=== PATIENT | male | born 1990 | race Caucasian/White ===

== ENCOUNTER → 2018-03-02 | Outpatient (CLI) | payer SELFPAY ==
[2018-03-02 14:30] LABS: HEMATOCRIT 43.1 % (37.9-51.0); MEAN CORPUSCULAR HEMOGLOBIN 25.9 pg (27.0-33.4); MEAN CORPUSCULAR HGB CONC 32.6 g/dL (32.0-36.0); MEAN CORPUSCULAR VOLUME 80 fl (80-97); PLATELET COUNT 511 10^3/uL (150-450); RED BLOOD COUNT 5.42 10^6/uL (4.35-5.55); RED CELL DISTRIBUTION WIDTH 15.1 % (11.5-14.0); WHITE BLOOD COUNT 13.8 10^3/uL (4.0-10.5)
== END ==
LOC: LAB 14:05
PROVIDERS: ATTEND Physician Assistant Surgical
DX: K62.5 Hemorrhage of anus and rectum (principal); R19.7 Diarrhea, unspecified
CPT/HCPCS: 36415; 85027; 86140

== ENCOUNTER 2019-04-19 14:38 | Emergency (ER) | payer BC ==
[2019-04-19 14:48] VITALS: BP 116/83
[2019-04-19] MEDS ORDERED: NORMAL SALINE 1000 ML 1,000 ML IV ONE (15:39)
[2019-04-19] MEDS ORDERED: ONDANSETRON HCL INJ/PF 4 MG/2 ML SDV IV ONE (15:39)
[2019-04-19] MEDS ORDERED: FAMOTIDINE INJ/PF 20 MG/2 ML SDV IV ONE (15:39)
--- NOTE | 2019-04-19 15:42 | ER Document Report ---
ED Medical Screen (RME) - General Chief Complaint: Abdominal Pain Stated Complaint: ABDOMINAL PAIN,VOMITING,DIZZINESS Time Seen by Provider: 04/19/19 15:35 Primary Care Provider: GEORGINA MATSON PA-C [Primary Care Provider] - Follow up as needed Mode of Arrival: Ambulatory Information source: Patient Notes: Patient is a 28-year-old male with history of ulcerative colitis presenting to the emergency department chief complaint of epigastric pain, chest pain, abdominal pain and blood in stools. Patient reports he has not slept in 2 days due to the severe pain in his esophagus. He states that he went to an urgent care just prior to arrival and was found to be pale, diaphoretic and tachycardic so they sent him here. Patient reports he has not been able to keep any fluids down although he has been trying to drink water. He denies any fevers but patient has obvious chills in triage. Exam: Mild generalized abdominal pain without guarding or rebound. Skin pale. I have greeted and performed a rapid initial assessment of this patient. A comprehensive ED assessment and evaluation of the patient, analysis of test results and completion of the medical decision making process will be conducted by additional ED providers. I have specifically instructed the patient or family members with the patient to immediately return to any nursing staff should anything change in the patient's condition or with their chief complaint. This medical record was dictated with voice recognizing software. There may be grammatical, syntax errors that are unintended. TRAVEL OUTSIDE OF THE [place] IN LAST 30 DAYS: No - Related Data Allergies/Adverse Reactions: No Known Allergies Allergy (Verified 04/19/19 14:43) Past Medical History - Immunizations Hx Diphtheria, Pertussis, Tetanus Vaccination: No Physical Exam - Vital signs Vitals: Temp Pulse BP Pulse Ox 98.1 F 130 H 116/83 100 04/19/19 14:46 04/19/19 14:46 04/19/19 14:46 04/19/19 14:46 Course - Vital Signs Vital signs: Temp Pulse Resp BP Pulse Ox 98.1 F 130 H 116/83 100 04/19/19 14:46 04/19/19 14:46 04/19/19 14:46 04/19/19 14:46 Doctor's Discharge - Discharge Referrals: GEROGINA MATSON PA-C [Primary Care Provider] - Follow up as needed
[2019-04-19 16:27] LABS: ABSOLUTE BASOPHILS # (AUTO) 0.1 10^3/uL (0.0-0.2); ABSOLUTE LYMPHOCYTES (AUTO) 2.4 10^3/uL (0.5-4.7); ABSOLUTE MONOCYTES (AUTO) 0.6 10^3/uL (0.1-1.4); ABSOLUTE NEUT (AUTO) 6.1 10^3/uL (1.7-8.2); BASOPHILS % (AUTO) 1.1 % (0-2); EOSINOPHILS % (AUTO) 0.4 % (0-6); HEMATOCRIT 29.7 % (37.9-51.0); HEMOGLOBIN 9.2 g/dL (13.5-17.0); LYMPHOCYTES % (AUTO) 26.2 % (13-45); MEAN CORPUSCULAR HEMOGLOBIN 17.5 pg (27.0-33.4); MONOCYTES % (AUTO) 6.2 % (3-13); PLATELET COUNT 680 10^3/uL (150-450); RED BLOOD COUNT 5.25 10^6/uL (4.35-5.55); RED CELL DISTRIBUTION WIDTH 19.7 % (11.5-14.0); SEGMENTED NEUTROPHILS % (AUTO) 66.1 % (42-78); TOTAL CELLS COUNTED % (AUTO) 100 %; WHITE BLOOD COUNT 9.2 10^3/uL (4.0-10.5)
[2019-04-19 16:49] LABS: ALBUMIN 4.6 g/dL (3.5-5.0); ALKALINE PHOSPHATASE 236 U/L (38-126); ANION GAP 19 (5-19); ASPARTATE AMINO TRANSFERASE 38 U/L (17-59); BILIRUBIN,DIRECT 0.1 mg/dL (0.0-0.4); BILIRUBIN,TOTAL 0.8 mg/dL (0.2-1.3); BLOOD UREA NITROGEN 8 mg/dL (7-20); CALCIUM 10.6 mg/dL (8.4-10.2); CARBON DIOXIDE 29 mmol/L (22-30); CHLORIDE 80 mmol/L (98-107); GLUCOSE 114 mg/dL (75-110); POTASSIUM 3.2 mmol/L (3.6-5.0); TOTAL PROTEIN 8.9 g/dL (6.3-8.2)
[2019-04-19 17:11] LABS: MEAN CORPUSCULAR VOLUME 57 fl (80-97)
[2019-04-19 17:13] LABS: ANISOCYTOSIS 2+; HYPOCHROMASIA 2+; PLATELET COMMENT INCREASED; PLATELET LARGE PRESENT; POLYCHROMASIA SLIGHT; TARGET CELLS SLIGHT
[2019-04-19] MEDS ORDERED: DIAZEPAM INJ 10 MG/2 ML DISP.SYRIN IV ONE (17:32)
--- NOTE | 2019-04-19 17:34 | ER Document Report ---
ED General - General Chief Complaint: Abdominal Pain Stated Complaint: ABDOMINAL PAIN,VOMITING,DIZZINESS Time Seen by Provider: 04/19/19 15:35 Primary Care Provider: GEORGINA MATSON PA-C [COMMUNITY BASED STAFF] - Follow up as needed Mode of Arrival: Ambulatory Notes: 28-year-old male with ulcerative colitis, currently not on medication, presents with several complaints. Rectal bleeding today over 20 times, pure blood plus watery diarrhea, with some lower abdominal cramping and upper abdominal burning and reflux. Nauseous. Has not eaten in 2 days has not slept in 3 days. Denies fever chills. Denies excessive alcohol consumption other than drinking 3 days in a row prior to this occurring, which began Thursday. TRAVEL OUTSIDE OF THE [place] IN LAST 30 DAYS: No - Related Data Allergies/Adverse Reactions: No Known Allergies Allergy (Verified 04/19/19 14:43) Past Medical History - General Information source: Patient - Social History Smoking Status: Never Smoker Chew tobacco use (# tins/day): No Frequency of alcohol use: Social Drug Abuse: None Family History: None Patient has suicidal ideation: No Patient has homicidal ideation: No - Immunizations Hx Diphtheria, Pertussis, Tetanus Vaccination: No Review of Systems - Review of Systems Notes: REVIEW OF SYSTEMS GEN: Denies fever, chills, weight loss ENT: Denies sore throat, nasal discharge, ear pain EYES: Denies blurry vision, eye pain, discharge CV: Denies chest pain, palpitations, edema RESP: Denies cough, shortness of breath, wheezing GI: HPI MSK: Denies joint pain/swelling, edema, SKIN: Denies rash, skin lesions LYMPH: Denies swollen glands/lymph nodes NEURO: Denies headache, focal weakness or numbness, dizziness PSYCH: Denies depression, suicidal or homicidal ideation PHYSICAL EXAMINATION General: No acute distress, well-nourished Head: Atraumatic, normocephalic ENT: Mouth normal, oropharynx moist, no exudates or tonsillar enlargement Eyes: Conjunctiva normal, pupils equal, lids normal Neck: No JVD, supple, no guarding CVS: Normal rate, regular rhythm, no murmurs Resp: No resp distress, equal and normal breath sounds bilaterally GI: Nondistended, soft, quadrant tenderness to palpation, no rebound or guarding no stool in the rectal vault. Ext: No deformities, no edema, normal range of motion in upper and lower ext Back: No CVA or midline TTP Skin: No rash, warm Lymphatic: No lymphadeopathy noted Neuro: Awake, alert. Face symmetric. GCS 15. Physical Exam - Vital signs Vitals: Temp Pulse BP Pulse Ox 98.1 F 130 H 116/83 100 04/19/19 14:46 04/19/19 14:46 04/19/19 14:46 04/19/19 14:46 Course - Re-evaluation Re-evalutation: 04/19/19 18:49 Patient presents with abdominal pain rectal bleeding and general dehydration with a history of ulcerative colitis. He is tachycardic on arrival. Do not suspect alcohol withdrawal based on historylikely dehydrated and possibly anemic. Labs been sent. They show a hemoglobin of 9.6. His last one was a year ago and was normal. His rectal exam does not suggest active ongoing severe hemorrhage. His heart rate is come down with IV fluids ordered at triage. His CT shows colonic wall thickening, he also has signs of dehydration with hyponatremia hypokalemia. He is received fluids which she is more, will receive potassium supplementation in 1time steroid dose. Also give him Ativan, for anxiety and nausea. There is no GI at [facility], and I spoke with Dr. White who said that I should send the patient somewhere with GI. Discussed with Dr. Wagner at [facility] who accepted the patient in transfer - Vital Signs Vital signs: Temp Pulse Resp BP Pulse Ox 98.1 F 130 H 116/83 100 04/19/19 14:46 04/19/19 14:46 04/19/19 14:46 04/19/19 14:46 - Laboratory Result Diagrams: 04/19/19 16:00 04/19/19 16:00 Laboratory results interpreted by me: 04/19/19 04/19/19 16:00 16:00 Hgb 9.2 L Hct 29.7 L MCV 57 L MCH 17.5 L MCHC 31.0 L RDW 19.7 H Plt Count 680 H Sodium 128.2 L Potassium 3.2 L Chloride 80 L Glucose 114 H Calcium 10.6 H Alkaline Phosphatase 236 H Total Protein 8.9 H - Diagnostic Test Radiology reviewed: Image reviewed, Reports reviewed Discharge - Discharge Clinical Impression: Hypokalemia Ulcerative colitis Qualifiers: Ulcerative colitis location: other ulcerative colitis Digestive disease complication type: with rectal bleeding Qualified Code(s): K51.811 - Other ulcerative colitis with rectal bleeding Condition: Fair Disposition: [facility] Referrals: GEORGINA MATSON PA-C [COMMUNITY BASED STAFF] - Follow up as needed
--- NOTE | 2019-04-19 17:52 | RADIOLOGY REPORT (SQ) ---
EXAM DESCRIPTION: ACUTE ABDOMEN SERIES COMPLETED DATE/TIME: 04/19/2019 4:57 pm REASON FOR STUDY: epigastric pain, chest pain, abd pain COMPARISON: None. NUMBER OF VIEWS: Three views. TECHNIQUE: Frontal chest, supine abdomen and upright/decubitus abdomen radiographic images acquired. LIMITATIONS: None. FINDINGS: CHEST: Lungs clear of infiltrates. FREE AIR: None. No abnormal gas collections. BOWEL GAS PATTERN: Nonobstructive pattern. No dilated loops or air fluid levels. CALCIFICATIONS: Cannot exclude a 7 mm ureteral calculus on the left between the transverse processes of L4 and L5. HARDWARE: None in the abdomen. SOFT TISSUES: No gross mass or suggestion of organomegaly. BONES: No acute fracture. No worrisome bone lesions. OTHER: No other significant finding. IMPRESSION: Cannot exclude left ureteral calculus. No other significant finding. TECHNICAL DOCUMENTATION: JOB ID: [id number] [employer]- All Rights Reserved Reading location - IP/workstation name: [email or web address]
[2019-04-19] MEDS: POTASSI CL 20 MEQ/50 ML RIDER 20 MEQ/50 ML RTUPB IV SCH ×2 (18:16→20:18)
--- NOTE | 2019-04-19 18:19 | RADIOLOGY REPORT (SQ) ---
EXAM DESCRIPTION: CT ABD/PELVIS WITH IV ONLY COMPLETED DATE/TIME: 04/19/2019 6:07 pm REASON FOR STUDY: abd pain, Ulc Colitis COMPARISON: None. TECHNIQUE: CT scan of the abdomen and pelvis performed using helical scanning technique with dynamic intravenous contrast injection. No oral contrast. Images reviewed with lung, soft tissue, and bone windows. Reconstructed coronal and sagittal MPR images reviewed. Delayed images were not acquired. Al l images stored on PACS. All CT scanners at this facility use dose modulation, iterative reconstruction, and/or weight based d osing when appropriate to reduce radiation dose to as low as reasonably achievable (ALARA). [facility]: Dose Right [facility]: CareDose [facility]: Dose Right [facility]: Teradose 4D [facility]: Media Lantern CONTRAST TYPE AND DOSE: 91 mL Omnipaque 350- low osmolar. RENAL FUNCTION: BUN 8 creatinine 1.19 RADIATION DOSE: CT Rad equipment meets quality standard of care and radiation dose reduction techniq ues were employed. CTDIvol: NaN mGy. DLP: 0 mGy-cm.. LIMITATIONS: None. FINDINGS: LOWER CHEST: No significant findings. No nodules or infiltrates. LIVER: Normal size. No masses. No dilated ducts. SPLEEN: Normal size. No focal lesions. PANCREAS: No masses. No significant calcifications. No adjacent inflammation or peripancreatic fluid collections. Pancreatic duct not dilated. GALLBLADDER: No identified stones by CT criteria. No inflammatory changes to suggest cholecystitis. ADRENAL GLANDS: No significant masses or asymmetry. RIGHT KIDNEY AND URETER: No solid masses. No significant calcifications. No hydronephrosis or hyd roureter. LEFT KIDNEY AND URETER: No solid masses. No significant calcifications. No hydronephrosis or hydr oureter. AORTA AND VESSELS: No aneurysm. No dissection. Renal arteries, SMA, celiac without stenosis. RETROPERITONEUM: Mesenteric adenopathy. BOWEL AND PERITONEAL CAVITY: Mild wall thickening of the ascending colon. No obvious bowel mass. APPENDIX: Normal. PELVIS: No mass. No free fluid. Normal bladder. ABDOMINAL WALL: No masses. No hernias. BONES: No significant or acute findings. OTHER: No other significant finding. IMPRESSION: Thickening of the wall of the ascending colon concerning for inflammatory bowel disease. Mild mesenteric adenopathy. TECHNICAL DOCUMENTATION: JOB ID: [id number] Quality ID # [id number]: Final reports with documentation of one or more dose reduction techniques (e.g., Au tomated exposure control, adjustment of the mA and/or kV according to patient size, use of iterative reconstruction technique) 2010 [employer]- All Rights Reserved Reading location - IP/workstation name: [email or web address]
[2019-04-19] MEDS ORDERED: METHYLPREDNISOLONE INJ 40 MG/1 ML SDV IV ONE (18:32)
[2019-04-19 19:34] LABS: APPEARANCE,URINE CLOUDY; BILIRUBIN,URINE NEGATIVE (NEGATIVE); GLUCOSE, URINE NEGATIVE (NEGATIVE); KETONES,URINE NEGATIVE (NEGATIVE); LEUKOCYTE ESTERASE,URINE NEGATIVE (NEGATIVE); NITRITE,URINE NEGATIVE (NEGATIVE); PROTEIN,URINE NEGATIVE (NEGATIVE); URINE SPECIFIC GRAVITY 1.024; UROBILINOGEN,URINE NEGATIVE mg/dL (<2.0)
[2019-04-19 19:35] LABS: COLOR,URINE YELLOW
[2019-04-19] MEDS ORDERED: MAG HYDROX/AL HYDROX/SIMETH SUSP 30 ML UDCUP PO ONE (20:09)
--- NOTE | 2019-04-19 21:01 | EKG REPORT ---
SEVERITY:- ABNORMAL ECG - SINUS TACHYCARDIA PROBABLE LEFT ATRIAL ABNORMALITY PROLONGED QT INTERVAL : Confirmed by: Laura East MD 19-Apr-2019 21:00:59
== END 2019-04-19 21:05 | disposition short-term general hospital (02) ==
LOC: ER 14:38
DX: K51.911 Ulcerative colitis, unspecified with rectal bleeding (principal); E87.6 Hypokalemia; E86.0 Dehydration; R19.7 Diarrhea, unspecified; K21.9 Gastro-esophageal reflux disease without esophagitis; R00.0 Tachycardia, unspecified; F41.9 Anxiety disorder, unspecified; R11.0 Nausea
CPT/HCPCS: 93005; 99285; 96361; 96375; 96365; 96366; 86900; 86901; 36415; 86850; 83690; 85025; 80053; 81001; 84484; 74022; 74177; 93010; J3360; J2920; J2405; J3480; J7030; S0028

== ENCOUNTER 2019-06-27 05:41 | Inpatient (IN) | payer BC ==
--- NOTE | 2019-06-27 06:22 | ER Document Report ---
ED GI/ - General Chief Complaint: Abdominal Pain Stated Complaint: STOMACH PAINS Information source: Patient Notes: Mr. Phelps is a 28 yo m w/ PMH ulcerative colitis previously on prednisone and mesalamine presenting to the ED for abdominal pain, weakness, nausea and ongoing diarrhea. Patient states that he was on prednisone and mesalamine up until approximately 2 to 3 weeks ago. He was taken off as he was supposed to be transitioned over to Remicade 2 weeks ago. However the patient developed strep throat was unable to be started on Remicade. Since the past week, he has been having multiple episodes of diarrhea daily, approximately 1-2 an hour. Patient states that over the past week the diarrhea has become progressively more bloo dy. Approximately 2 months ago in the beginning of April he was seen at [facility] and his hemoglobin was 7. He did not receive any transfusions at that point in time. Patient denies any chest pain, shortness of breath or cough. He endorses significantly decreased appetite with ongoing nausea and intermittent dry heaving. Small amounts of material come up occasionally but primarily diarr hea. Patient states the pain is diffuse. No headache, dysuria or increased urinary frequency. Patient does endorse lightheadedness and feels as if he appears more pallor than usual. TRAVEL OUTSIDE OF THE [place] IN LAST 30 DAYS: No - Related Data Allergies/Adverse Reactions: No Known Allergies Allergy (Verified 04/19/19 14:43) Past Medical History - General Information source: Patient - Social History Smoking Status: Never Smoker Frequency of alcohol use: None Family History: Reviewed & Not Pertinent Patient has suicidal ideation: No Patient has homicidal ideation: No - Past Medical History Cardiac Medical History: Reports: Other - Ulcerative colitis - Immunizations Hx Diphtheria, Pertussis, Tetanus Vaccination: No Review of Systems - Review of Systems Constitutional: See HPI EENT: No symptoms reported Cardiovascular: No symptoms reported Respiratory: No symptoms reported Gastrointestinal: See HPI Genitourinary: No symptoms reported Male Genitourinary: No symptoms reported Musculoskeletal: No symptoms reported Skin: No symptoms reported Hematologic/Lymphatic: No symptoms reported Neurological/Psychological: No symptoms reported Physical Exam - Vital signs Vitals: Temp Pulse Resp BP Pulse Ox 98.0 F 142 H 17 155/102 H 100 06/27/19 05:48 06/27/19 05:48 06/27/19 05:48 06/27/19 05:48 06/27/19 05:48 Interpretation: Tachycardic - General General appearance: Appears well, Alert In distress: Mild - HEENT Head: Normocephalic, Atraumatic Eyes: Normal Pupils: PERRL Mucous membranes: Dry - Respiratory Respiratory status: No respiratory distress Chest status: Nontender Breath sounds: Normal Chest palpation: Normal - Cardiovascular Rhythm: Regular Heart sounds: Normal auscultation Murmur: No - Abdominal Inspection: Normal Distension: No distension Bowel sounds: Normal Tenderness: Tender. No: McBurney's point, Moy's sign, Guarding, Rebound Organomegaly: No organomegaly - Back Back: Normal, Nontender - Extremities General upper extremity: Normal inspection, Nontender, Normal color, Normal ROM, Normal temperature General lower extremity: Normal inspection, Nontender, Normal color, Normal ROM, Normal temperature, Normal weight bearing. No: Nena's sign - Neurological Neuro grossly intact: Yes Cognition: Normal Orientation: AAOx4 Sam Coma Scale Eye Opening: Spontaneous Sam Coma Scale Verbal: Oriented [place] Coma Scale Motor: Obeys Commands Sam Coma Scale Total: 15 Speech: Normal Motor strength normal: LUE, RUE, LLE, RLE Sensory: Normal - Psychological Associated symptoms: Normal affect, Normal mood - Skin Skin Temperature: Warm Skin Moisture: Dry Skin Color: Normal Course - Re-evaluation Re-evalutation: Patient is ill-appearing but nontoxic. Initial vitals notable for significant t achycardia. Patient does appear dehydrated. Differential diagnosis includes ulcerative colitis flare, anemia, dehydration, electrolyte abnormality, intestinal fistula 06/27/19 06:37 Labs pending. Stool cultures added on. Will administer Zofran for nausea and IV fluids. Ordered for CT with both p.o. and IV contrast. Patient CBC does not show significant leukocytosis however MCV significantly decreased at 67 concerning with chronic blood loss anemia. H&H is improved from prior. Patient's lites are significantly elevated at greater than 900. Alk phos is also elevated. Remainder of CMP within normal limits. Trace leukocyte esterase in the UA however no evidence of UTI. 06/27/19 10:57 CT shows evidence of diffuse inflammatory changes to the colon consistent with an ulcerative colitis flare. Huber with patient the ongoing course and likely need for admission for dehydration and inability to keep down p.o. given that it goes directly through him and he has immediate diarrhea. He has had 1-2 episodes every hour. Stool culture sent to lab. Spoke to giovana. Would like to discuss w/ Nataliia 06/27/19 11:[address] William. Agrees w/ solumedrol. He stated it is unlikely GI would start Remicade on Thursday w/ an active flare. - Vital Signs Vital signs: Temp Pulse Resp BP Pulse Ox 99.1 F 101 H 16 133/76 H 97 06/27/19 12:00 06/27/19 12:00 06/27/19 12:00 06/27/19 12:00 06/27/19 12:00 - Laboratory Result Diagrams: 06/27/19 06:00 06/27/19 06:00 Laboratory results interpreted by me: 06/27/19 06/27/19 06/27/19 06:00 06:00 06:00 Hgb 11.0 L Hct 34.2 L MCV 67 L MCH 21.6 L RDW 20.7 H Plt Count 930 H Sodium 132.2 L Chloride 91 L BUN < 2 L Alkaline Phosphatase 236 H Ur Leukocyte Esterase TRACE H Discharge - Discharge Clinical Impression: Ulcerative colitis with rectal bleeding, Abdominal pain, Diarrhea, Thrombocytosis Condition: Good Disposition: ADMITTED INPATIENT Admitting Provider: Nataliia (Hospitalist) Unit Admitted: Medical Floor
[2019-06-27 06:26] LABS: ABSOLUTE BASOPHILS # (AUTO) 0.1 10^3/uL (0.0-0.2); ABSOLUTE EOSINOPHILS # (AUTO) 0.2 10^3/uL (0.0-0.6); ABSOLUTE LYMPHOCYTES (AUTO) 2.4 10^3/uL (0.5-4.7); ABSOLUTE MONOCYTES (AUTO) 0.6 10^3/uL (0.1-1.4); ABSOLUTE NEUT (AUTO) 5.9 10^3/uL (1.7-8.2); APPEARANCE,URINE CLEAR; BASOPHILS % (AUTO) 1.2 % (0-2); BILIRUBIN,URINE NEGATIVE (NEGATIVE); COLOR,URINE STRAW; EOSINOPHILS % (AUTO) 1.7 % (0-6); GLUCOSE, URINE NEGATIVE (NEGATIVE); HEMATOCRIT 34.2 % (37.9-51.0); KETONES,URINE NEGATIVE (NEGATIVE); LEUKOCYTE ESTERASE,URINE TRACE (NEGATIVE); MEAN CORPUSCULAR HEMOGLOBIN 21.6 pg (27.0-33.4); MEAN CORPUSCULAR HGB CONC 32.2 g/dL (32.0-36.0); MEAN CORPUSCULAR VOLUME 67 fl (80-97); MONOCYTES % (AUTO) 6.9 % (3-13); NITRITE,URINE NEGATIVE (NEGATIVE); PLATELET COUNT 930 10^3/uL (150-450); PROTEIN,URINE NEGATIVE (NEGATIVE); RED BLOOD COUNT 5.09 10^6/uL (4.35-5.55); RED CELL DISTRIBUTION WIDTH 20.7 % (11.5-14.0); SEGMENTED NEUTROPHILS % (AUTO) 64.2 % (42-78); TOTAL CELLS COUNTED % (AUTO) 100 %; URINE SPECIFIC GRAVITY 1.001; UROBILINOGEN,URINE NEGATIVE mg/dL (<2.0); WHITE BLOOD COUNT 9.1 10^3/uL (4.0-10.5)
[2019-06-27] MEDS ORDERED: ONDANSETRON HCL INJ/PF 4 MG/2 ML SDV IV ONE (06:31)
[2019-06-27] MEDS ORDERED: NORMAL SALINE 1000 ML 1,000 ML IV ONE ×2 (06:31→11:12)
[2019-06-27 06:50] LABS: ALBUMIN 3.5 g/dL (3.5-5.0); ALKALINE PHOSPHATASE 236 U/L (38-126); ANION GAP 15 (5-19); ASPARTATE AMINO TRANSFERASE 43 U/L (17-59); BILIRUBIN,DIRECT 0.1 mg/dL (0.0-0.4); BILIRUBIN,TOTAL 0.5 mg/dL (0.2-1.3); CALCIUM 10.1 mg/dL (8.4-10.2); CARBON DIOXIDE 26 mmol/L (22-30); CHLORIDE 91 mmol/L (98-107); GLUCOSE 104 mg/dL (75-110); POTASSIUM 4.1 mmol/L (3.6-5.0); TOTAL PROTEIN 8.1 g/dL (6.3-8.2)
[2019-06-27 06:54] LABS: ANISOCYTOSIS 2+; BLOOD UREA NITROGEN < 2 mg/dL (7-20); POIKILOCYTOSIS 2+; TOXIC GRANULATION 1+; TOXIC VACUOLATION PRESENT
[2019-06-27 06:55] LABS: HYPOCHROMASIA 1+; OVALOCYTES 1+; PLATELET COMMENT ADEQUATE; SCHISTOCYTES SLIGHT; TARGET CELLS SLIGHT
[2019-06-27] MEDS ORDERED: LORAZEPAM INJ 2 MG/1 ML VIAL IV ONE (06:56)
--- NOTE | 2019-06-27 09:49 | RADIOLOGY REPORT (SQ) ---
EXAM DESCRIPTION: CT ABD/PELVIS WITH IV ORAL COMPLETED DATE/TIME: 06/27/2019 9:27 am REASON FOR STUDY: abd pain COMPARISON: 04/19/2019 TECHNIQUE: CT scan of the abdomen and pelvis performed using helical scanning technique with dynamic intravenous contrast injection. Additional oral contrast. Images reviewed with lung, soft tissue, a nd bone windows. Reconstructed coronal and sagittal MPR images reviewed. Delayed images for evaluatio n of the urinary system also acquired. All images stored on PACS. All CT scanners at this facility use dose modulation, iterative reconstruction, and/or weight based d osing when appropriate to reduce radiation dose to as low as reasonably achievable (ALARA). [facility]: Dose Right [facility]: CareDose [facility]: Dose Right [facility]: Teradose 4D [facility]: CLIPPATE CONTRAST TYPE AND DOSE: contrast/concentration: Isovue 350.00 mg/ml; Total Contrast Delivered: 90.0 ml; Total Saline Delivered: 70.0 ml Additional oral enteric contrast RENAL FUNCTION: None required. The patient is less than 50 years old. RADIATION DOSE: CT Rad equipment meets quality standard of care and radiation dose reduction techniq ues were employed. CTDIvol: 6.3 - 8.6 mGy. DLP: 854 mGy-cm.. LIMITATIONS: None. FINDINGS: LOWER CHEST: No significant findings. No nodules or infiltrates. LIVER: Normal size. Hepatic steatosis. No masses. No dilated ducts. SPLEEN: Normal size. No focal lesions. PANCREAS: No masses. No significant calcifications. No adjacent inflammation or peripancreatic fluid collections. Pancreatic duct not dilated. GALLBLADDER: Contracted gallbladder. No identified stones by CT criteria. No inflammatory changes to suggest cholecystitis. ADRENAL GLANDS: No significant masses or asymmetry. RIGHT KIDNEY AND URETER: No solid masses. No significant calcifications. No hydronephrosis or hyd roureter. LEFT KIDNEY AND URETER: No solid masses. No significant calcifications. No hydronephrosis or hydr oureter. AORTA AND VESSELS: No aneurysm. No dissection. Renal arteries, SMA, celiac without stenosis. RETROPERITONEUM: No retroperitoneal adenopathy, hemorrhage or masses. BOWEL AND PERITONEAL CAVITY: There is diffuse colonic wall thickening with mesenteric fat stranding and enlarged mesenteric lymph nodes, similar in appearance to prior examination dated 04/19/2019. No free fluid or peritoneal masses. APPENDIX: Normal. PELVIS: No mass. No free fluid. Normal bladder. ABDOMINAL WALL: No masses. No hernias. BONES: No significant or acute findings. OTHER: No other significant finding. IMPRESSION: 1. There is diffuse colonic wall thickening with mesenteric fat stranding and enlarged m esenteric lymph nodes, similar in appearance to prior examination dated 04/19/2019 and concerning for inflammatory bowel disease, particularly ulcerative colitis given this appearance. There is no evide nce of acute complication such as perforation or abscess. 2. Hepatic steatosis. TECHNICAL DOCUMENTATION: JOB ID: [id number] Quality ID # [id number]: Final reports with documentation of one or more dose reduction techniques (e.g., Au tomated exposure control, adjustment of the mA and/or kV according to patient size, use of iterative reconstruction technique) 2010 [employer]- All Rights Reserved Reading location - IP/workstation name: [email or web address]
[2019-06-27 10:35] LABS: C DIFFICILE GDH NEGATIVE (NEGATIVE)
[2019-06-27] MEDS ORDERED: METHYLPREDNISOLONE INJ 125 MG/2 ML SDV IV ONE (11:12)
[2019-06-27] MEDS ORDERED: ONDANSETRON HCL INJ/PF 4 MG/2 ML SDV IV PRN (12:10)
[2019-06-27] MEDS ORDERED: METHYLPREDNISOLONE INJ 40 MG/1 ML SDV IV SCH (14:00)
--- NOTE | 2019-06-27 16:05 | PDOC H&P ---
History of Present Illness Admission Date/PCP: 06/27/19 11:41 History of Present Illness: SETH JAMA is a 28 year old male with a history of ulcerative colitis first diagnosed last year who has been on a long steroid taper and got off of it about a month ago and was going to start Remicade but he got strep throat and had to have antibiotics for couple weeks. He was scheduled to start this week for for the last week and a half he has had worsening diarrhea, often with blood in it. 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 His hemoglobin is low normal but his platelets were elevated. He has some abdominal pain which she describes as crampy. He said is not been able to sleep very much because he had to get up and use the bathroom. His CT shows diffuse colonic inflammation. He is being admitted for some IV steroids. Past Medical History Cardiac Medical History: Reports: Other - Ulcerative colitis Social History Smoking Status: Never Smoker Family History Family History: Reviewed & Not Pertinent Parental Family History Reviewed: Yes Children Family History Reviewed: NA Sibling(s) Family History Reviewed.: NA Medication/Allergy Home Medications: No Home Medications 06/27/19 Allergies/Adverse Reactions: No Known Allergies Allergy (Verified 04/19/19 14:43) Review of Systems All systems: reviewed and no additional remarkable complaints except as stated - All systems were reviewed and were negative except as noted in the HPI Physical Exam Vital Signs: Temp Pulse Resp BP Pulse Ox 99.1 F 101 H 16 133/76 H 97 06/27/19 12:00 06/27/19 12:00 06/27/19 12:00 06/27/19 12:00 06/27/19 12:00 Intake & Output 06/26/19 06/27/19 06/28/19 06:59 06:59 06:59 Intake Total 1999 Balance 1999 Weight 79.4 kg General appearance: PRESENT: no acute distress, cooperative Head exam: PRESENT: atraumatic, normocephalic Eye exam: PRESENT: EOMI, PERRLA. ABSENT: conjunctival injection, nystagmus, scleral icterus Ear exam: PRESENT: normal external ear exam Mouth exam: PRESENT: moist, neck supple Throat exam: ABSENT: post pharyngeal erythema Neck exam: PRESENT: full ROM. ABSENT: carotid bruit, JVD, lymphadenopathy, meningismus, tenderness, thyromegaly Respiratory exam: PRESENT: clear to auscultation leandro, symmetrical, unlabored. ABSENT: accessory muscle use, chest wall tenderness, crackles, prolonged expiratory phas, rhonchi, tachypnea, wheezes Cardiovascular exam: PRESENT: RRR, +S1, +S2 Pulses: PRESENT: normal carotid pulses Vascular exam: PRESENT: normal capillary refill GI/Abdominal exam: PRESENT: normal bowel sounds, soft. ABSENT: distended, guard ing, rebound, tenderness Rectal exam: PRESENT: heme (+) stool Extremities exam: ABSENT: clubbing, pedal edema Musculoskeletal exam: PRESENT: normal inspection. ABSENT: deformity Neurological exam: PRESENT: alert, awake, oriented to person, oriented to place, oriented to time, oriented to situation, CN II-XII grossly intact. ABSENT: motor sensory deficit Psychiatric exam: PRESENT: appropriate affect, normal mood Skin exam: PRESENT: dry, warm Results Laboratory Results: 06/27/19 06:00 06/27/19 06:00 06/27/19 06/27/19 06/27/19 06:00 06:00 06:00 WBC 9.1 RBC 5.09 Hgb 11.0 L Hct 34.2 L MCV 67 L MCH 21.6 L MCHC 32.2 RDW 20.7 H Plt Count 930 H Seg Neutrophils % 64.2 Sodium 132.2 L Potassium 4.1 Chloride 91 L Carbon Dioxide 26 Anion Gap 15 BUN < 2 L Creatinine 0.88 Est GFR ( Amer) > 60 Glucose 104 Calcium 10.1 Total Bilirubin 0.5 AST 43 Alkaline Phosphatase 236 H Total Protein 8.1 Albumin 3.5 Lipase 142.0 Urine Color STRAW Urine Appearance CLEAR Urine pH 9.0 Ur Specific [place] 1.001 Urine Protein NEGATIVE Urine Glucose (UA) NEGATIVE Urine Ketones NEGATIVE Urine Blood NEGATIVE Urine Nitrite NEGATIVE Ur Leukocyte Esterase TRACE H Blood Type Antibody Screen 06/27/19 06:43 WBC RBC Hgb Hct MCV MCH MCHC RDW Plt Count Seg Neutrophils % Sodium Potassium Chloride Carbon Dioxide Anion Gap BUN Creatinine Est GFR ( Amer) Glucose Calcium Total Bilirubin AST Alkaline Phosphatase Total Protein Albumin Lipase Urine Color Urine Appearance Urine pH Ur Specific [place] Urine Protein Urine Glucose (UA) Urine Ketones Urine Blood Urine Nitrite Ur Leukocyte Esterase Blood Type O POSITIVE Antibody Screen NEGATIVE Impressions: Abdomen/Pelvis CT 06/27/19 06:32 IMPRESSION: 1. There is diffuse colonic wall thickening with mesenteric fat stranding and enlarged mesenteric lymph nodes, similar in appearance to prior examination dated 04/19/2019 and concerning for inflammatory bowel disease, particularly ulcerative colitis given this appearance. There is no evidence of acute complication such as perforation or abscess. 2. Hepatic steatosis. Assessment and Plan - Diagnosis (1) Ulcerative colitis with rectal bleeding Qualifiers: Ulcerative colitis location: ulcerative pancolitis Qualified Code(s): K51.011 - Ulcerative (chronic) pancolitis with rectal bleeding Is this a current diagnosis for this admission?: Yes Plan: We will see how he tries on IV steroids. He is previously had a good response to steroids. Hopefully a short burst will help without having him go on a long taper. If he does not respond after a few days, will consult GI to see if he would be appropriate to start Remicade as an inpatient. - Time Time Spent with patient: 35 or more minutes - Inpatient Certification Based on my medical assessment, after consideration of the patient's comorbidities, presenting symptoms, or acuity I expect that the services needed warrant INPATIENT care.: Yes I certify that my determination is in accordance with my understanding of Medicare's requirements for reasonable and necessary INPATIENT services [42 CFR 412.3e].: Yes Medical Necessity: Need Close Monitoring Due to Risk of Patient Decompensation, Risk of Complication if Not Cared For in Hospital
[2019-06-27] MEDS: METHYLPREDNISOLONE INJ 40 MG/1 ML SDV IV SCH ×2 (16:38→22:18)
[2019-06-27] MEDS ORDERED: INFLUENZA QUAD (6MOS+) 2019-20 VAC 0.5 ML SYR IM ONE (18:24)
[2019-06-27] MEDS: ZOLPIDEM TARTRATE 5 MG TABLET PO PRN (22:18)
[2019-06-28 05:16] LABS: HEMATOCRIT 30.8 % (37.9-51.0); HEMOGLOBIN 9.9 g/dL (13.5-17.0); MEAN CORPUSCULAR HEMOGLOBIN 22.3 pg (27.0-33.4); MEAN CORPUSCULAR HGB CONC 32.3 g/dL (32.0-36.0); MEAN CORPUSCULAR VOLUME 69 fl (80-97); PLATELET COUNT 827 10^3/uL (150-450); RED BLOOD COUNT 4.45 10^6/uL (4.35-5.55); RED CELL DISTRIBUTION WIDTH 20.3 % (11.5-14.0); WHITE BLOOD COUNT 16.5 10^3/uL (4.0-10.5)
[2019-06-28] MEDS: METHYLPREDNISOLONE INJ 40 MG/1 ML SDV IV SCH ×3 (05:16→21:17)
--- NOTE | 2019-06-28 16:23 | PDOC PROGRESS REPORT ---
Subjective Progress Note for:: 06/28/19 Subjective:: No adverse events overnight. He said that he has had 13 bowel movements since he got up to the floor yesterday, but they are not as bloody as they have been. He has not been nauseated. Reason For Visit: ACUTE ULCERATIVE COLITIS Physical Exam Vital Signs: Temp Pulse Resp BP Pulse Ox 99.4 F 112 H 18 130/85 H 99 06/28/19 11:55 06/28/19 11:55 06/28/19 11:55 06/28/19 11:55 06/28/19 11:55 Intake & Output 06/27/19 06/28/19 06/29/19 06:59 06:59 06:59 Intake Total 2680 814 Balance 2680 814 Weight 79.4 kg 63.6 kg General appearance: PRESENT: no acute distress, cooperative Respiratory exam: PRESENT: clear to auscultation leandro, symmetrical, unlabored. ABSENT: accessory muscle use, chest wall tenderness, crackles, prolonged expiratory phas, rhonchi, tachypnea, wheezes Cardiovascular exam: PRESENT: RRR, +S1, +S2 Pulses: PRESENT: normal carotid pulses Vascular exam: PRESENT: normal capillary refill GI/Abdominal exam: PRESENT: normal bowel sounds, soft. ABSENT: distended, guarding, rebound, tenderness Extremities exam: ABSENT: clubbing, pedal edema Musculoskeletal exam: PRESENT: normal inspection. ABSENT: deformity Neurological exam: PRESENT: alert, awake, oriented to person, oriented to place, oriented to time, oriented to situation Psychiatric exam: PRESENT: appropriate affect, normal mood Skin exam: PRESENT: dry, warm Results Laboratory Results: 06/28/19 03:41 06/27/19 06:00 06/28/19 03:41 WBC 16.5 H RBC 4.45 Hgb 9.9 L Hct 30.8 L MCV 69 L MCH 22.3 L MCHC 32.3 RDW 20.3 H Plt Count 827 H Impressions: Abdomen/Pelvis CT 06/27/19 06:32 IMPRESSION: 1. There is diffuse colonic wall thickening with mesenteric fat stranding and enlarged mesenteric lymph nodes, similar in appearance to prior examination dated 04/19/2019 and concerning for inflammatory bowel disease, particularly ulcerative colitis given this appearance. There is no evidence of acute complication such as perforation or abscess. 2. Hepatic steatosis. Assessment and Plan - Diagnosis (1) Ulcerative colitis with rectal bleeding Qualifiers: Ulcerative colitis location: ulcerative pancolitis Qualified Code(s): K51.011 - Ulcerative (chronic) pancolitis with rectal bleeding Is this a current diagnosis for this admission?: Yes Plan: We will continue IV steroids we will continue to monitor hemoglobin. If he does not really respond any better in a couple of days, will get GI involved. - Time Time Spent with patient: 15-24 minutes
[2019-06-28] MEDS: FAMOTIDINE 20 MG TABLET PO SCH (21:17)
[2019-06-28] MEDS: ZOLPIDEM TARTRATE 5 MG TABLET PO PRN (23:30)
[2019-06-29] MEDS: METHYLPREDNISOLONE INJ 40 MG/1 ML SDV IV SCH ×3 (05:15→21:59)
[2019-06-29 06:00] LABS: HEMATOCRIT 31.6 % (37.9-51.0); HEMOGLOBIN 9.6 g/dL (13.5-17.0); MEAN CORPUSCULAR HEMOGLOBIN 21.6 pg (27.0-33.4); MEAN CORPUSCULAR HGB CONC 30.4 g/dL (32.0-36.0); MEAN CORPUSCULAR VOLUME 71 fl (80-97); PLATELET COUNT 800 10^3/uL (150-450); RED BLOOD COUNT 4.46 10^6/uL (4.35-5.55); RED CELL DISTRIBUTION WIDTH 20.6 % (11.5-14.0); WHITE BLOOD COUNT 23.4 10^3/uL (4.0-10.5)
[2019-06-29] MEDS: FAMOTIDINE 20 MG TABLET PO SCH ×2 (09:46→21:59)
[2019-06-29 12:34] LABS: ABSOLUTE RETICS # 0.111 10^6/uL (0.028-0.122); RETICULOCYTE COUNT (AUTO) 2.47 % (0.66-2.85)
[2019-06-29 13:18] LABS: FERRITIN 6.65 ng/mL (17.9-464.0)
[2019-06-29 13:48] LABS: FOLATE 6.12 ng/mL (>2.76)
[2019-06-29 13:59] LABS: IRON(TIBC) < 10.1 ug/dL (49-181)
[2019-06-29] MEDS ORDERED: IRON DEXTRAN COMPLEX 300 MG in NORMAL SALINE 500 ML IV ONE (19:05)
--- NOTE | 2019-06-29 19:12 | PDOC PROGRESS REPORT ---
Subjective Progress Note for:: 06/29/19 Subjective:: No adverse events overnight. He said that he still having approximately 1 bowel movement an hour, but he does not think that they have been as bloody, more just like loose stool. He said he still has a lot of abdominal cramping. Reason For Visit: ACUTE ULCERATIVE COLITIS Physical Exam Vital Signs: Temp Pulse Resp BP Pulse Ox 98.1 F 101 H 16 135/82 H 100 06/29/19 16:25 06/29/19 16:25 06/29/19 16:25 06/29/19 16:25 06/29/19 16:25 Intake & Output 06/28/19 06/29/19 06/30/19 06:59 06:59 06:59 Intake Total 2680 2701 Balance 2680 2701 Weight 63.6 kg 63.5 kg General appearance: PRESENT: no acute distress, cooperative Respiratory exam: PRESENT: clear to auscultation leandro, symmetrical, unlabored. ABSENT: accessory muscle use, chest wall tenderness, crackles, prolonged expiratory phas, rhonchi, tachypnea, wheezes Cardiovascular exam: PRESENT: RRR, +S1, +S2 Pulses: PRESENT: normal carotid pulses Vascular exam: PRESENT: normal capillary refill GI/Abdominal exam: PRESENT: normal bowel sounds, soft. ABSENT: distended, guarding, rebound, tenderness Extremities exam: ABSENT: clubbing, pedal edema Musculoskeletal exam: PRESENT: normal inspection. ABSENT: deformity Neurological exam: PRESENT: alert, awake, oriented to person, oriented to place, oriented to time, oriented to situation Psychiatric exam: PRESENT: appropriate affect, normal mood Skin exam: PRESENT: dry, warm, pale Results Laboratory Results: 06/29/19 05:00 06/27/19 06:00 06/29/19 06/29/19 06/29/19 05:00 05:00 05:00 WBC 23.4 H RBC 4.46 Hgb 9.6 L Hct 31.6 L MCV 71 L MCH 21.6 L MCHC 30.4 L RDW 20.6 H Plt Count 800 H Retic Count (auto) 2.47 Iron < 10.1 L TIBC 304 Ferritin 6.65 L Vitamin B12 886.0 Folate 6.12 06/27/19 07:38 Stool - Stool - Final 06/27/19 07:38 Stool - Stool Stool Culture - Final NO SALMONELLA, SHIGELLA, CAMPYLOBACTER, OR E.COLI 0157 RECOVERED. NEGATIVE FOR SHIGA TOXINS 1&2. Impressions: Abdomen/Pelvis CT 06/27/19 06:32 IMPRESSION: 1. There is diffuse colonic wall thickening with mesenteric fat stranding and enlarged mesenteric lymph nodes, similar in appearance to prior examination dated 04/19/2019 and concerning for inflammatory bowel disease, particularly ulcerative colitis given this appearance. There is no evidence of acute complication such as perforation or abscess. 2. Hepatic steatosis. Assessment and Plan - Diagnosis (1) Ulcerative colitis with rectal bleeding Qualifiers: Ulcerative colitis location: ulcerative pancolitis Qualified Code(s): K51.011 - Ulcerative (chronic) pancolitis with rectal bleeding Is this a current diagnosis for this admission?: Yes Plan: We will continue with IV steroids. He has had about 2 days total. If he has 3 full days of steroids and he still symptomatic, will get gastroenterology involved. (2) Iron deficiency anemia due to chronic blood loss Is this a current diagnosis for this admission?: Yes Plan: We will give him a transfusion of IV iron. His ferritin is low as well, so he will probably get multiple transfusions. - Time Time Spent with patient: 25-34 minutes
[2019-06-29] MEDS ORDERED: FERUMOXYTOL (NON-ESRD) 510 MG/NS 100 ML IV ONE ×2 (22:30)
[2019-06-29] MEDS: ZOLPIDEM TARTRATE 5 MG TABLET PO PRN (22:45)
[2019-06-30] MEDS: METHYLPREDNISOLONE INJ 40 MG/1 ML SDV IV SCH ×3 (05:35→21:37)
[2019-06-30 06:00] LABS: HEMATOCRIT 31.2 % (37.9-51.0); HEMOGLOBIN 9.6 g/dL (13.5-17.0); MEAN CORPUSCULAR HEMOGLOBIN 21.9 pg (27.0-33.4); MEAN CORPUSCULAR HGB CONC 30.8 g/dL (32.0-36.0); MEAN CORPUSCULAR VOLUME 71 fl (80-97); PLATELET COUNT 693 10^3/uL (150-450); RED BLOOD COUNT 4.39 10^6/uL (4.35-5.55); RED CELL DISTRIBUTION WIDTH 20.4 % (11.5-14.0); WHITE BLOOD COUNT 17.1 10^3/uL (4.0-10.5)
[2019-06-30] MEDS: FAMOTIDINE 20 MG TABLET PO SCH ×2 (10:22→21:37)
--- NOTE | 2019-06-30 16:03 | PDOC PROGRESS REPORT ---
Subjective Progress Note for:: 06/30/19 Subjective:: No adverse events overnight. No new complaints. He got an infusion of IV iron yesterday. He said he is still averaging about 1 bowel movement an hour. Reason For Visit: ACUTE ULCERATIVE COLITIS Physical Exam Vital Signs: Temp Pulse Resp BP Pulse Ox 97.5 F 87 17 127/91 H 100 06/30/19 12:00 06/30/19 12:00 06/30/19 12:00 06/30/19 12:00 06/30/19 12:00 Intake & Output 06/29/19 06/30/19 07/01/19 06:59 06:59 06:59 Intake Total 2701 3188 480 Balance 2701 3188 480 Weight 63.5 kg 63.8 kg 63.8 kg General appearance: PRESENT: no acute distress, cooperative Respiratory exam: PRESENT: clear to auscultation leandro, symmetrical, unlabored. ABSENT: accessory muscle use, chest wall tenderness, crackles, prolonged expiratory phas, rhonchi, tachypnea, wheezes Cardiovascular exam: PRESENT: RRR, +S1, +S2 Pulses: PRESENT: normal carotid pulses Vascular exam: PRESENT: normal capillary refill GI/Abdominal exam: PRESENT: normal bowel sounds, soft. ABSENT: distended, guarding, rebound, tenderness Extremities exam: ABSENT: clubbing, pedal edema Musculoskeletal exam: PRESENT: normal inspection. ABSENT: deformity Neurological exam: PRESENT: alert, awake, oriented to person, oriented to place, oriented to time, oriented to situation Psychiatric exam: PRESENT: appropriate affect, normal mood Skin exam: PRESENT: dry, warm, pale Results Laboratory Results: 06/30/19 04:13 06/27/19 06:00 06/30/19 04:13 WBC 17.1 H RBC 4.39 Hgb 9.6 L Hct 31.2 L MCV 71 L MCH 21.9 L MCHC 30.8 L RDW 20.4 H Plt Count 693 H 06/27/19 07:38 Stool - Stool - Final 06/27/19 07:38 Stool - Stool Stool Culture - Final NO SALMONELLA, SHIGELLA, CAMPYLOBACTER, OR E.COLI 0157 RECOVERED. NEGATIVE FOR SHIGA TOXINS 1&2. Impressions: Abdomen/Pelvis CT 06/27/19 06:32 IMPRESSION: 1. There is diffuse colonic wall thickening with mesenteric fat stranding and enlarged mesenteric lymph nodes, similar in appearance to prior examination dated 04/19/2019 and concerning for inflammatory bowel disease, particularly ulcerative colitis given this appearance. There is no evidence of acute complication such as perforation or abscess. 2. Hepatic steatosis. Assessment and Plan - Diagnosis (1) Ulcerative colitis with rectal bleeding Qualifiers: Ulcerative colitis location: ulcerative pancolitis Qualified Code(s): K51.011 - Ulcerative (chronic) pancolitis with rectal bleeding Is this a current diagnosis for this admission?: Yes Plan: He has had 3 full days of IV Solu-Medrol. He has not shown enough of a response to conservative treatment to be effective thus far. I called Dr. Osei, who was kind enough to discuss the case with me and limiting his opinion. He believes that the patient should be started on Remicade. The dose is 10 mg/kg. I contacted the pharmacy and they are obtaining this medication and we anticipate we will be able to administer it tomorrow. He should show a response to this within 5 days. If he does not, another 10 mg/kg dose will be given at that time. We will start to taper his steroids once we get his Remicade started. (2) Iron deficiency anemia due to chronic blood loss Is this a current diagnosis for this admission?: Yes Plan: He got an infusion of IV iron yesterday. I am going to go ahead and give him another infusion of IV iron today. - Time Time Spent with patient: 25-34 minutes
[2019-06-30] MEDS: ZOLPIDEM TARTRATE 5 MG TABLET PO PRN (21:37)
[2019-07-01] MEDS: METHYLPREDNISOLONE INJ 40 MG/1 ML SDV IV SCH ×2 (05:57→14:01)
[2019-07-01] MEDS ORDERED: IRON DEXTRAN COMPLEX 300 MG in NORMAL SALINE 500 ML IV ONE ×2 (07:57→10:00)
[2019-07-01] MEDS: FAMOTIDINE 20 MG TABLET PO SCH ×2 (09:59→21:39)
[2019-07-01] MEDS ORDERED: NORMAL SALINE IV ONE (15:00)
[2019-07-01] MEDS ORDERED: INFLIXIMAB DYYB IV ONE (15:00)
--- NOTE | 2019-07-01 17:48 | PDOC PROGRESS REPORT ---
Subjective Progress Note for:: 07/01/19 Subjective:: No adverse events overnight. Still having very high frequency bowel movements. He thinks they are not quite as bloody. Having some crampy abdominal pain and is tired of being in the hospital bed. Reason For Visit: ACUTE ULCERATIVE COLITIS Physical Exam Vital Signs: Temp Pulse Resp BP Pulse Ox 98.1 F 86 16 135/76 H 100 07/01/19 11:41 07/01/19 11:41 07/01/19 11:41 07/01/19 11:41 07/01/19 11:41 Intake & Output 06/30/19 07/01/19 07/02/19 06:59 06:59 06:59 Intake Total 3188 1080 360 Balance 3188 1080 360 Weight 63.8 kg 63.1 kg General appearance: PRESENT: no acute distress, cooperative Respiratory exam: PRESENT: clear to auscultation leandro, symmetrical, unlabored. ABSENT: accessory muscle use, chest wall tenderness, crackles, prolonged expiratory phas, rhonchi, tachypnea, wheezes Cardiovascular exam: PRESENT: RRR, +S1, +S2 Pulses: PRESENT: normal carotid pulses Vascular exam: PRESENT: normal capillary refill GI/Abdominal exam: PRESENT: normal bowel sounds, soft. ABSENT: distended, guarding, rebound, tenderness Extremities exam: ABSENT: clubbing, pedal edema Musculoskeletal exam: PRESENT: normal inspection. ABSENT: deformity Neurological exam: PRESENT: alert, awake, oriented to person, oriented to place, oriented to time, oriented to situation Psychiatric exam: PRESENT: appropriate affect, normal mood Skin exam: PRESENT: dry, warm, pale Results Laboratory Results: 06/30/19 04:13 06/27/19 06:00 Impressions: Abdomen/Pelvis CT 06/27/19 06:32 IMPRESSION: 1. There is diffuse colonic wall thickening with mesenteric fat stranding and enlarged mesenteric lymph nodes, similar in appearance to prior examination dated 04/19/2019 and concerning for inflammatory bowel disease, parti cularly ulcerative colitis given this appearance. There is no evidence of acute complication such as perforation or abscess. 2. Hepatic steatosis. Assessment and Plan - Diagnosis (1) Ulcerative colitis with rectal bleeding Qualifiers: Ulcerative colitis location: ulcerative pancolitis Qualified Code(s): K51.011 - Ulcerative (chronic) pancolitis with rectal bleeding Is this a current diagnosis for this admission?: Yes Plan: Getting his first infusion of Remicade today. If he has some improvement tomorrow, he may possibly go home. We will send him with a steroid taper. We will arrange for him to follow-up with his bone tender. (2) Iron deficiency anemia due to chronic blood loss Is this a current diagnosis for this admission?: Yes Plan: Hemoglobin seems to have stabilized. Transfuse some more iron today. I recommended that he take an iron supplement for couple of months after his discharge. - Time Time Spent with patient: 15-24 minutes
[2019-07-01] MEDS: ZOLPIDEM TARTRATE 5 MG TABLET PO PRN (21:39)
[2019-07-02] MEDS ORDERED: PREDNISONE 20 MG TABLET PO SCH (10:00)
[2019-07-02] MEDS: FAMOTIDINE 20 MG TABLET PO SCH (10:10)
[2019-07-02 12:35] VITALS: BP 130/76
--- NOTE | 2019-07-02 16:47 | PDOC DISCHARGE SUMMARY ---
Impression - Admit/DC Date/PCP Admission Date/Primary Care Provider: 06/27/19 11:41 Discharge Date: 07/02/19 - Discharge Diagnosis (1) Ulcerative colitis with rectal bleeding Is this a current diagnosis for this admission?: Yes (2) Iron deficiency anemia due to chronic blood loss Is this a current diagnosis for this admission?: Yes - Additional Information Resuscitation Status: Full Code Discharge Diet: Regular Discharge Activity: Activity As Tolerated Referrals: ALVINO RAWLS MD [ACTIVE STAFF] - 07/04/19 Prescriptions: Prednisone 10 mg PO DAILY #20 tab.[email or web address] Home Medications: Prednisone 10 mg PO DAILY #20 tab.ds.pk 07/02/19 History of Present Illiness History of Present Illness: SETH JAMA is a 28 year old male with a history of ulcerative colitis first diagnosed last year who has been on a long steroid taper and got off of it about a month ago and was going to start Remicade but he got strep throat and had to have antibiotics for couple weeks. He was scheduled to start this week for for the last week and a half he has had worsening diarrhea, often with blood in it. 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 His hemoglobin is low normal but his platelets were elevated. He has some abdominal pain which she describes as crampy. He said is not been able to sleep very much because he had to get up and use the bathroom. His CT shows diffuse colonic inflammation. He is being admitted for some IV steroids. Hospital Course Hospital Course: We put him on IV Solu-Medrol for 3 days but he did not have much in the way of improvement. I called Dr. Osei who was good enough to give me some advice on the case. He recommended starting the patient on Remicade. We gave him his first dose of Remicade at 10 mg/kg. He has had some improvement within the first 24 hours. He is already had a reduction of the frequency and his bowel movements. He went from having about 1 every hour to about 6 since yesterday evening, which is a significant improvement. I am going to send him home on a steroid taper. He is to follow-up next week with Dr. Rawls. He is to return to the hospital if he has any worsening of his symptoms. He is also found to be iron deficient and I gave him 2 iron infusions and told him to take an iron supplement twice a day for the next couple of months because his iron stores are completely depleted. He verbalizes understanding. His labs and examination wer e reassuring and he was discharged in good condition. Physical Exam Vital Signs: Temp Pulse Resp BP Pulse Ox 98.4 F 98 19 130/76 H 100 07/02/19 12:31 07/02/19 12:31 07/02/19 12:31 07/02/19 12:31 07/02/19 12:31 Intake & Output 07/01/19 07/02/19 07/03/19 06:59 06:59 06:59 Intake Total 1080 1110 960 Balance 1080 1110 960 Weight 63.1 kg 64.2 kg General appearance: PRESENT: no acute distress, cooperative Respiratory exam: PRESENT: clear to auscultation leandro, symmetrical, unlabored. ABSENT: accessory muscle use, chest wall tenderness, crackles, prolonged expiratory phas, rhonchi, tachypnea, wheezes Cardiovascular exam: PRESENT: RRR, +S1, +S2 Pulses: PRESENT: normal carotid pulses Vascular exam: PRESENT: normal capillary refill GI/Abdominal exam: PRESENT: normal bowel sounds, soft. ABSENT: distended, guarding, rebound, tenderness Extremities exam: ABSENT: clubbing, pedal edema Musculoskeletal exam: PRESENT: normal inspection. ABSENT: deformity Neurological exam: PRESENT: alert, awake, oriented to person, oriented to place, oriented to time, oriented to situation Psychiatric exam: PRESENT: appropriate affect, normal mood Skin exam: PRESENT: dry, warm, pale Results Laboratory Results: WBC 17.1 10^3/uL (4.0-10.5) H 06/30/19 04:13 RBC 4.39 10^6/uL (4.35-5.55) 06/30/19 04:13 Hgb 9.6 g/dL (13.5-17.0) L 06/30/19 04:13 Hct 31.2 % (37.9-51.0) L 06/30/19 04:13 MCV 71 fl (80-97) L 06/30/19 04:13 MCH 21.9 pg (27.0-33.4) L 06/30/19 04:13 MCHC 30.8 g/dL (32.0-36.0) L 06/30/19 04:13 RDW 20.4 % (11.5-14.0) H 06/30/19 04:13 Plt Count 693 10^3/uL (150-450) H 06/30/19 04:13 Lymph % (Auto) 26.0 % (13-45) 06/27/19 06:00 Sullivan % (Auto) 6.9 % (3-13) 06/27/19 06:00 Eos % (Auto) 1.7 % (0-6) 06/27/19 06:00 Baso % (Auto) 1.2 % (0-2) 06/27/19 06:00 Reticulocyte # 0.111 10^6/uL (0.028-0.122) 06/29/19 05:00 Absolute Neuts (auto) 5.9 10^3/uL (1.7-8.2) 06/27/19 06:00 Absolute Lymphs (auto) 2.4 10^3/uL (0.5-4.7) 06/27/19 06:00 Absolute Monos (auto) 0.6 10^3/uL (0.1-1.4) 06/27/19 06:00 Absolute Eos (auto) 0.2 10^3/uL (0.0-0.6) 06/27/19 06:00 Absolute Basos (auto) 0.1 10^3/uL (0.0-0.2) 06/27/19 06:00 Seg Neutrophils % 64.2 % (42-78) 06/27/19 06:00 Toxic Granulation 1+ 06/27/19 06:00 Toxic Vacuolation PRESENT 06/27/19 06:00 Platelet Comment ADEQUATE 06/27/19 06:00 Hypochromasia 1+ 06/27/19 06:00 Poikilocytosis 2+ 06/27/19 06:00 Anisocytosis 2+ 06/27/19 06:00 Target Cells SLIGHT 06/27/19 06:00 Ovalocytes 1+ 06/27/19 06:00 Schistocytes SLIGHT 06/27/19 06:00 Retic Count (auto) 2.47 % (0.66-2.85) 06/29/19 05:00 Sodium 132.2 mmol/L (137-145) L 06/27/19 06:00 Potassium 4.1 mmol/L (3.6-5.0) 06/27/19 06:00 Chloride 91 mmol/L (98-107) L 06/27/19 06:00 Carbon Dioxide 26 mmol/L (22-30) 06/27/19 06:00 Anion Gap 15 (5-19) 06/27/19 06:00 BUN < 2 mg/dL (7-20) L 06/27/19 06:00 Creatinine 0.88 mg/dL (0.52-1.25) 06/27/19 06:00 Est GFR ( Amer) > 60 (>60) 06/27/19 06:00 Est GFR (MDRD) Non-Af > 60 (>60) 06/27/19 06:00 Glucose 104 mg/dL (75-110) 06/27/19 06:00 Calcium 10.1 mg/dL (8.4-10.2) 06/27/19 06:00 Iron < 10.1 ug/dL (49-181) L 06/29/19 05:00 TIBC 304 ug/dL (250-450) 06/29/19 05:00 Iron Saturation UNABLE TO CALCULATE % (20% - 50%) 06/29/19 05:00 Ferritin 6.65 ng/mL (17.9-464.0) L 06/29/19 05:00 Total Bilirubin 0.5 mg/dL (0.2-1.3) 06/27/19 06:00 Direct Bilirubin 0.1 mg/dL (0.0-0.4) 06/27/19 06:00 Neonat Total Bilirubin Not Reportable 06/27/19 06:00 Neonat Direct Bilirubin Not Reportable 06/27/19 06:00 Neonat Indirect Bili Not Reportable 06/27/19 06:00 AST 43 U/L (17-59) 06/27/19 06:00 ALT 51 U/L (<50) 06/27/19 06:00 Alkaline Phosphatase 236 U/L (38-126) H 06/27/19 06:00 Total Protein 8.1 g/dL (6.3-8.2) 06/27/19 06:00 Albumin 3.5 g/dL (3.5-5.0) 06/27/19 06:00 Lipase 142.0 U/L (23-300) 06/27/19 06:00 Vitamin B12 886.0 pg/mL (239-931) 06/29/19 05:00 Folate 6.12 ng/mL (>2.76) 06/29/19 05:00 Urine Color STRAW 06/27/19 06:00 Urine Appearance CLEAR 06/27/19 06:00 Urine pH 9.0 (5.0-9.0) 06/27/19 06:00 Ur Specific [place] 1.001 06/27/19 06:00 Urine Protein NEGATIVE mg/dL (NEGATIVE) 06/27/19 06:00 Urine Glucose (UA) NEGATIVE mg/dL (NEGATIVE) 06/27/19 06:00 Urine Ketones NEGATIVE mg/dL (NEGATIVE) 06/27/19 06:00 Urine Blood NEGATIVE (NEGATIVE) 06/27/19 06:00 Urine Nitrite NEGATIVE (NEGATIVE) 06/27/19 06:00 Urine Bilirubin NEGATIVE (NEGATIVE) 06/27/19 06:00 Urine Urobilinogen NEGATIVE mg/dL (<2.0) 06/27/19 06:00 Ur Leukocyte Esterase TRACE (NEGATIVE) H 06/27/19 06:00 Urine Mucus (Auto) RARE /LPF 06/27/19 06:00 Urine Ascorbic Acid NEGATIVE (NEGATIVE) 06/27/19 06:00 Stl C. Difficile GDH Ag NEGATIVE (NEGATIVE) 06/27/19 07:38 Stl C.difficile Tox A&B NEGATIVE (NEGATIVE) 06/27/19 07:38 Blood Type O POSITIVE 06/27/19 06:43 Antibody Screen NEGATIVE 06/27/19 06:43 Impressions: Abdomen/Pelvis CT 06/27/19 06:32 IMPRESSION: 1. There is diffuse colonic wall thickening with mesenteric fat stranding and enlarged mesenteric lymph nodes, similar in appearance to prior examination dated 04/19/2019 and concerning for inflammatory bowel disease, part icularly ulcerative colitis given this appearance. There is no evidence of acute complication such as perforation or abscess. 2. Hepatic steatosis. Plan Time Spent: Greater than 30 Minutes Stroke Is this a Stroke Patient?: No Acute Heart Failure - Is this a Heart Failure Patient?: No
== END 2019-07-02 13:05 | disposition home or self-care (01) | DRG 387 ==
LOC: ER 05:41 → EH 11:41 → 4N 18:17
PROVIDERS: ADMIT Family Medicine; ATTEND Family Medicine
DX: K51.911 Ulcerative colitis, unspecified with rectal bleeding (principal); D50.0 Iron deficiency anemia secondary to blood loss (chronic); Z23 Encounter for immunization
CPT/HCPCS: 36415; 74177; 80048; 80076; 81001; 82607; 82728; 82746; 83540; 83550; 83690; 85025; 85027; 85045; 86850; 86900; 86901; 87045; 87205; 87324; 87449; 90686; 96361; 96374; 96375; 99285; J1750; J2060; J2405; J2920; J2930; J7030; J7040; J7050; J7512; Q0138; Q5103